=== PATIENT | male | born 1975 ===

== ENCOUNTER 2018-04-16 13:41 | Emergency (ER) | payer SELFPAY ==
[~2018-04-16] VITALS: Ht 172.7 cm; Wt 77.1 kg
[~2018-04-16 13:41] MED LIST: Prednisone20 MG PO
[2018-04-16] MEDS ORDERED: Prednisone50 MG PO (14:00)
[2018-04-16] MEDS ORDERED: Triamcinolone A15 GM TOP (14:00)
== END 2018-04-16 14:11 | disposition home or self-care (01) ==
LOC: ER 13:41
DX: L25.9 Unspecified contact dermatitis, unspecified cause (principal); F17.200 Nicotine dependence, unspecified, uncomplicated
CPT/HCPCS: 99282

== ENCOUNTER 2018-04-20 13:29 | Emergency (ER) | payer SELFPAY ==
[~2018-04-20] VITALS: Ht 165.1 cm; Wt 63.5 kg
[~2018-04-20 13:29] MED LIST changes: +Prednisone50 MG PO; +Triamcinolone A15 GM TOP
== END 2018-04-20 15:10 | disposition home or self-care (01) ==
LOC: ER 13:29
DX: S40.862A Insect bite (nonvenomous) of left upper arm, initial encounter (principal); S40.861A Insect bite (nonvenomous) of right upper arm, initial encounter; S20.469A Insect bite (nonvenomous) of unspecified back wall of thorax, initial encounter; F17.200 Nicotine dependence, unspecified, uncomplicated; Z79.52 Long term (current) use of systemic steroids; W57.XXXA Bitten or stung by nonvenomous insect and other nonvenomous arthropods, initial encounter
CPT/HCPCS: 99284